=== PATIENT | female | born 1975 | race Caucasian/White ===

== ENCOUNTER 2017-02-07 07:51 | Observation (INO) | payer MEDICARE, OTHER ==
[~2017-02-07] VITALS: Ht 170.2 cm; Wt 57.0 kg
[2017-02-07 07:53] VITALS: BP 91/52; PULSE 75; RESP 16; TEMP 98; O2SAT 97
--- NOTE | 2017-02-07 08:06 | PD ---
HPI Chief Complaint: Slurred speech Time Seen by Provider: 08:00 Travel History International Travel<30 days: No Contact w/Intl Traveler<30days: No Traveled to known affect area: No History of Present Illness HPI 41yo F with PMH of bipolar disorder presents to the ED with c/o slurred speech that started when she woke up this morning. As per , pt went to bed with normal speech but work up with slurred speech. Pt complains of generalized weakness. Denies any trauma, fever, chest pain, sob, n/v, abdominal pain, focal weakness or numbness. Denies any cocaine use. Denies any history of TIA or CVA. Pt is on risperidone but has been on it for 8 years with no side effects. Blood glucose 132. PFSH Past Medical History ?: Not Social History Alcohol Use: No Tobacco Use: No Substance Use: No Allergies-Medications (Allergen,Severity, Reaction): Coded Allergies: No Known Allergies (Unverified , 02/07/17) Reported Meds & Prescriptions Reported Meds & Active Scripts Active Reported Risperdal (Risperidone) 4 Mg Tab 4 Mg PO DAILY Review of Systems Except as stated in HPI: all other systems reviewed are Neg Physical Exam Narrative GENERAL: 41yo F not in distress. SKIN: Focused skin assessment warm/dry. HEAD: Atraumatic. Normocephalic. EYES: Pupils equal and round at 4mm bilaterally. EOMI. No scleral icterus. No injection or drainage. ENT: No nasal bleeding or discharge. Mucous membranes pink and moist. NECK: Trachea midline. No JVD. CARDIOVASCULAR: Regular rate and rhythm. No murmur appreciated. RESPIRATORY: No accessory muscle use. Clear to auscultation. Breath sounds equal bilaterally. GASTROINTESTINAL: Abdomen soft, non-tender, nondistended. MUSCULOSKELETAL: No obvious deformities. No clubbing. No cyanosis. No edema. NEUROLOGICAL: Awake and alert. No obvious cranial nerve deficits. Motor grossly within normal limits. Mild dysarthria. NIH scale 1. Data Data Last Documented VS Vital Signs Date Time Temp Pulse Resp B/P Pulse Ox O2 Delivery O2 Flow Rate FiO2 02/07/17 09:16 64 18 88/54 98 02/07/17 07:53 98.0 Orders Basic Metabolic Panel (Bmp) (02/07/17 08:00) Complete Blood Count With Diff (02/07/17 08:00) Prothrombin Time / Inr (Pt) (02/07/17 08:00) Act Partial Throm Time (Ptt) (02/07/17 08:00) Thyroid Stimulating Hormone (02/07/17 08:00) Ct Brain W/O Iv Contrast(Rout) (02/07/17 08:00) Blood Glucose (02/07/17 08:00) Ecg Monitoring (02/07/17 08:00) Iv Access Insert/Monitor (02/07/17 08:00) Urinalysis - C+S If Indicated (02/07/17 08:00) Labs Laboratory Tests Test 02/07/17 02/07/17 08:05 08:55 White Blood Count 3.7 TH/MM3 Red Blood Count 4.28 MIL/MM3 Hemoglobin 14.0 GM/DL Hematocrit 41.5 % Mean Corpuscular Volume 96.9 FL Mean Corpuscular Hemoglobin 32.6 PG Mean Corpuscular Hemoglobin 33.7 % Concent Red Cell Distribution Width 13.0 % Platelet Count 198 TH/MM3 Mean Platelet Volume 8.1 FL Neutrophils (%) (Auto) 60.3 % Lymphocytes (%) (Auto) 28.2 % Monocytes (%) (Auto) 10.3 % Eosinophils (%) (Auto) 0.5 % Basophils (%) (Auto) 0.7 % Neutrophils # (Auto) 2.2 TH/MM3 Lymphocytes # (Auto) 1.0 TH/MM3 Monocytes # (Auto) 0.4 TH/MM3 Eosinophils # (Auto) 0.0 TH/MM3 Basophils # (Auto) 0.0 TH/MM3 CBC Comment DIFF FINAL Differential Comment Prothrombin Time 12.2 SEC Prothromb Time International 1.1 RATIO Ratio Activated Partial 23.8 SEC Thromboplast Time Sodium Level 140 MEQ/L Potassium Level 4.3 MEQ/L Chloride Level 108 MEQ/L Carbon Dioxide Level 22.3 MEQ/L Anion Gap 10 MEQ/L Blood Urea Nitrogen 17 MG/DL Creatinine 0.67 MG/DL Estimat Glomerular Filtration 96 ML/MIN Rate Random Glucose 133 MG/DL Calcium Level 8.8 MG/DL Thyroid Stimulating Hormone 2.200 uIU/ML 3rd Gen Urine Color LIGHT-YELLOW Urine Turbidity CLEAR Urine pH 7.0 Urine Specific [place] 1.005 Urine Protein NEG mg/dL Urine Glucose (UA) NEG mg/dL Urine Ketones NEG mg/dL Urine Occult Blood NEG Urine Nitrite NEG Urine Bilirubin NEG Urine Urobilinogen LESS THAN 2.0 MG/DL Urine Leukocyte Esterase NEG Urine WBC LESS THAN 1 /hpf Urine Squamous Epithelial <1 /hpf Cells Microscopic Urinalysis Comment CULT NOT INDICATED MDM Medical Decision Making Medical Screen Exam Complete: Yes Emergency Medical Condition: Yes Interpretation(s) EKG: NSR 80bpm. Normal axis. No ST segment elevation or depression. Differential Diagnosis CVA vs. conversion disorder vs. medication effects Narrative Course 41yo F with c/o slurred speech that started when she woke up. No other neurologic complaints. Labs reviewed, glucose 133. TSH normal. UA negative. CT brain negative. Pt reevaluated at bedside and her speech is now normal. Impression is TIA. Pt given aspirin and will admit for TIA work up. Diagnosis Primary Impression: TIA (transient ischemic attack) Qualified Code: G45.9 - Transient cerebral ischemia, unspecified type Admitting Information Admitting Physician Requests: Fernanda Vera DO February 07, 2017 08:06
--- NOTE | 2017-02-07 08:23 | RADRPT ---
EXAM DATE/TIME: 02/07/2017 08:08 [facility] COMPARISON: No previous studies available for comparison. INDICATIONS : Slurred speach. RADIATION DOSE: 34.89 CTDIvol (mGy) MEDICAL HISTORY : None SURGICAL HISTORY : None. ENCOUNTER: Initial ACUITY: 1 day PAIN SCALE: 0/10 LOCATION: cranial TECHNIQUE: Multiple contiguous axial images were obtained of the head. Using automated exposure control and adj ustment of the mA and/or kV according to patient size, radiation dose was kept as low as reasonably a chievable to obtain optimal diagnostic quality images. FINDINGS: CEREBRUM: The ventricles are normal for age. No evidence of midline shift, mass lesion, hemorrhage or acute in farction. No extra-axial fluid collections are seen. POSTERIOR FOSSA: The cerebellum and brainstem are intact. The 4th ventricle is midline. The cerebellopontine angle i s unremarkable. EXTRACRANIAL: The visualized portion of the orbits is intact. SKULL: The calvaria is intact. No evidence of skull fracture. CONCLUSION: Brain CT within normal limits. Waqar Reyes MD on February 07, 2017 at 8:19 Board Certified Radiologist. This report was verified electronically.
[2017-02-07] MEDS ORDERED: RISP4TAB41 PO (08:27)
[2017-02-07 08:42] LABS: AUTOMATED NEUTROPHIL # 2.2 TH/MM3 (1.8-7.7); BASOPHIL % 0.7 % (0.0-2.0); EOSINOPHIL % 0.5 % (0.0-4.0); HEMATOCRIT 41.5 % (35.0-46.0); HEMO FLAGS DIFF FINAL; LYMPH % 28.2 % (9.0-44.0); MEAN CELL VOLUME 96.9 FL (80.0-100.0); MEAN CORPUSCULAR HEMOGLOBIN 32.6 PG (27.0-34.0); MEAN CORPUSCULAR HGB CONC 33.7 % (32.0-36.0); MONO % 10.3 % (0.0-8.0); NEUT % 60.3 % (16.0-70.0); PLATELET COUNT 198 TH/MM3 (150-450); RED BLOOD COUNT 4.28 MIL/MM3 (4.00-5.30); WHITE BLOOD COUNT 3.7 TH/MM3 (4.0-11.0)
[2017-02-07 08:51] LABS: APTT (PATIENT) 23.8 SEC (24.3-30.1); INTERNATIONAL NORMALIZED RATIO 1.1 RATIO; PROTHROMBIN TIME - PATIENT 12.2 SEC (9.8-11.6)
[2017-02-07 08:54] LABS: BICARBONATE 22.3 MEQ/L (21.0-32.0); POTASSIUM 4.3 MEQ/L (3.5-5.1)
[2017-02-07 09:16] VITALS: BP 88/54; PULSE 64; RESP 18; O2SAT 98
[2017-02-07 09:21] LABS: BLOOD, URINE NEG (NEG); GLUCOSE,URINE NEG (NEG); KETONE, URINE NEG (NEG); NITRITE,URINE NEG (NEG); SQUAMOUS EPITHELIAL CELL URINE <1 /hpf (0-5); URINE COLOR LIGHT-YELLOW (YELLW/STRAW)
[2017-02-07 09:33] LABS: COMMENT (UR) CULT NOT INDICATED; CULTURE IF INDICATED CULT NOT INDICATED
[2017-02-07] MEDS ORDERED: ASPIRIN 325 MG TAB PO ONE (09:45)
--- NOTE | 2017-02-07 09:49 | HHI.HP ---
HPI Service Family Medicine Primary Care Physician [facility] Admission Diagnosis TIA Diagnoses: International Travel<30 Days: No Contact w/Intl Traveler<30days: No Known Affected Area: No History of Present Illness This is a 41-year-old female without significant cardiovascular past medical history presents because of slurred speech and difficulty walking since 45 minutes after waking up this morning. Patient states she woke up around 6:30 AM and roughly half hour later noticed something wrong with her speech. She states her speech was slurred and this was affirmed by her . She also had difficulty walking and ask her to carry her to the car. She denies word finding difficulties. No changes in vision. Denies weakness numbness, tingling, sensation abnormalities. This has never happened before. When they arrived at the hospital, he had to be carried from the car to the emergency room. Roughly an hour after her symptoms started, she was able to walk without difficulty as normal. Roughly 90 minutes after the difficulty speaking/slurred speech, her speech became normalized. During my visit at 9:50 AM, she is "back to normal." (Jose Marie MD R2) Review of Systems Constitutional: DENIES: Fever, Chills Eyes: DENIES: Blurred vision, Diplopia Ears, nose, mouth, throat: DENIES: Tinnitus, Hearing loss Respiratory: DENIES: Apneas, Cough Cardiovascular: DENIES: Chest pain, Palpitations, Syncope Gastrointestinal: DENIES: Abdominal pain, Black stools, Bloody stools, Constipation, Diarrhea, Nausea, Vomiting, Difficulty Swallowing Genitourinary: DENIES: Abnormal vaginal bleeding, Dysmenorrhea Musculoskeletal: DENIES: Joint pain, Muscle aches Integumentary: DENIES: Abnormal pigmentation, Pruritus Hematologic/lymphatic: DENIES: Bruising Neurologic: COMPLAINS OF: Abnormal gait, Speech Problems, Poor Balance, DENIES : Headache, Localized weakness, Paresthesias, Seizures, Tremor Psychiatric: COMPLAINS OF: Confusion (see hpi), DENIES: Anxiety (Jose Marie MD R2) Past Family Social History Past Medical History Bipolar disorder- sees [place] doctor Past Surgical History Volvulus- 2015 Reported Medications Reported Meds & Active Scripts Active Reported Risperdal (Risperidone) 4 Mg Tab 4 Mg PO DAILY (Jose Marie MD R2) Allergies: Coded Allergies: No Known Allergies (Unverified , 02/07/17) Family History Mom- alive and well. no hx of strokes or heart disease Dad- alive and well. No hx of strokes or heart disease Social History From [place]. Lives here now. Moved in 2012. Live with and no one else. No children. Smoke 1 cigar a month currently. Previous 1.5 PPD from [id number]. Alcohol- none No MJ, cocaine or other illicits. (Jose Marie MD R2) Physical Exam Vital Signs Vital Signs Date Time Temp Pulse Resp B/P Pulse Ox O2 Delivery O2 Flow Rate FiO2 02/07/17 09:16 64 18 88/54 98 02/07/17 07:56 16 02/07/17 07:53 98.0 75 16 91/52 97 Physical Exam GENERAL: This is a well-nourished, well-developed patient, in no apparent distress. SKIN: No rashes, ecchymoses or lesions. Cool and dry. HEAD: Atraumatic. Normocephalic. No temporal or scalp tenderness. EYES: Pupils equal round and reactive. Extraocular motions intact. No scleral icterus. No injection or drainage. ENT: Nose without bleeding, purulent drainage or septal hematoma. Throat without erythema, tonsillar hypertrophy or exudate. Uvula midline. Airway patent. NECK: Trachea midline. No JVD or lymphadenopathy. Supple, nontender, no meningeal signs. CARDIOVASCULAR: Regular rate and rhythm without murmurs, gallops, or rubs. RESPIRATORY: Clear to auscultation. Breath sounds equal bilaterally. No wheezes , rales, or rhonchi. GASTROINTESTINAL: Abdomen soft, non-tender, nondistended. No hepato-splenomegaly , or palpable masses. No guarding. MUSCULOSKELETAL: Extremities without clubbing, cyanosis, or edema. No joint tenderness, effusion, or edema noted. No calf tenderness. Negative Homans sign bilaterally. NEUROLOGICAL: Awake and alert. Cranial nerves II through XII intact. Motor and sensory grossly within normal limits. Five out of 5 muscle strength in all muscle groups. Normal speech. Laboratory Laboratory Tests Test 02/07/17 02/07/17 08:05 08:55 White Blood Count 3.7 Red Blood Count 4.28 Hemoglobin 14.0 Hematocrit 41.5 Mean Corpuscular Volume 96.9 Mean Corpuscular Hemoglobin 32.6 Mean Corpuscular Hemoglobin 33.7 Concent Red Cell Distribution Width 13.0 Platelet Count 198 Mean Platelet Volume 8.1 Neutrophils (%) (Auto) 60.3 Lymphocytes (%) (Auto) 28.2 Monocytes (%) (Auto) 10.3 Eosinophils (%) (Auto) 0.5 Basophils (%) (Auto) 0.7 Neutrophils # (Auto) 2.2 Lymphocytes # (Auto) 1.0 Monocytes # (Auto) 0.4 Eosinophils # (Auto) 0.0 Basophils # (Auto) 0.0 CBC Comment DIFF FINAL Differential Comment Prothrombin Time 12.2 Prothromb Time International 1.1 Ratio Activated Partial 23.8 Thromboplast Time Sodium Level 140 Potassium Level 4.3 Chloride Level 108 Carbon Dioxide Level 22.3 Anion Gap 10 Blood Urea Nitrogen 17 Creatinine 0.67 Estimat Glomerular Filtration 96 Rate Random Glucose 133 Calcium Level 8.8 Thyroid Stimulating Hormone 2.200 3rd Gen Urine Color LIGHT-YELLOW Urine Turbidity CLEAR Urine pH 7.0 Urine Specific [place] 1.005 Urine Protein NEG Urine Glucose (UA) NEG Urine Ketones NEG Urine Occult Blood NEG Urine Nitrite NEG Urine Bilirubin NEG Urine Urobilinogen LESS THAN 2.0 Urine Leukocyte Esterase NEG Urine WBC LESS THAN 1 Urine Squamous Epithelial <1 Cells Microscopic Urinalysis Comment CULT NOT INDICATED (Jose Marie MD R2) Result Diagram: 02/07/17 0802/07/17 08 Imaging Last Impressions Head CT 02/07/17 08 Signed Impressions: Service Date/Time: Tuesday, February 07, 2017 08:08 - CONCLUSION: Brain CT within normal limits. Waqar Reyes MD (Jose Marie MD R2) Assessment and Plan Assessment and Plan 41-year-old female concerned for stroke first TIA. Plan as below. Code Status Full (Jose Marie MD R2) Attending Attestation Patient seen and examined, discussed with resident team. I agree with assessment and management as documented and discussed with me. Pt reports she is completely back to baseline. She denies headache, vision changes, nausea, weakness. She has ambulated the halls without difficulty. She undersatnds that we are concerned re: possible TIA. She understands that she will need to take ASA at discharge. Await MRI, MRA, carotid US, echo results. Will hold off on neurology consult at this time and consult if indicated based on imaging. (Nhi Davila MD) Problem List: (1) TIA (transient ischemic attack) Status: Acute Plan: Stroke versus TIA. CT head negative. Currently patient back to her baseline. Neurology consult; stroke navigator consult Aspirin 325 daily PT/ST/OT consult Neurochecks every 2 hours Nothing by mouth until Bedside swallow by nursing. If normal, regular diet. Images ordered and pending: Ultrasound carotid, MRA brain, MRI brain, 2-D echo Labs ordered: TSH, lipid panel, hemoglobin A1c (2) FEN/PPX Status: Acute Plan: Fluids: None indicated at this time. Electrolytes: Monitor and replace when necessary Nutrition: Nothing by mouth until bedside swallow performed. Then regular diet Prophylaxis: Bilateral SCDs. Lovenox 40 subcutaneous Chronic medical problems: Bipolar disorder-continue Risperdal (Jose Marie MD R2) Physician Certification 2 Midnight Certification Type: Admission for Inpatient Services Order for Inpatient Services The services are ordered in accordance with Medicare regulations or non- Medicare payer requirements, as applicable. In the case of services not specified as inpatient-only, they are appropriately provided as inpatient services in accordance with the 2-midnight benchmark. Estimated LOS (days): 1 days is the estimated time the patient will need to remain in the hospital, assuming treatment plan goals are met and no additional complications. Post-Hospital Plan: Home (Jose Marie MD R2) Problem Qualifiers (1) TIA (transient ischemic attack): Qualified Code: G45.9 - Transient cerebral ischemia, unspecified type Jose Marie MD R2 February 07, 2017 09:49 Nhi Davila MD February 07, 2017 20:04
[2017-02-07] MEDS ORDERED: ENOXAPARIN SODIUM 40 MG/0.4 ML SYRINGE SQ SCH (10:15)
[2017-02-07] MEDS ORDERED: SODIUM CHLORIDE 0.9% FLUSH 5 ML FLUSH IV FLUSH PRN (10:15)
[2017-02-07] MEDS ORDERED: ACETAMINOPHEN 325 MG TAB PO PRN (11:00)
[2017-02-07] MEDS ORDERED: MAGNESIUM HYDROXIDE SUSP 30 ML CUP PO PRN (11:00)
[2017-02-07] MEDS ORDERED: TEMAZEPAM 15 MG CAP PO PRN (11:00)
[2017-02-07 11:15] VITALS: BP 92/54; PULSE 58; RESP 16; O2SAT 98
[2017-02-07 12:14] VITALS: BP 95/61; PULSE 60; RESP 16; O2SAT 97
--- NOTE | 2017-02-07 13:34 | RADRPT ---
EXAM DATE/TIME: 02/07/2017 11:46 [facility] COMPARISON: No previous studies available for comparison. INDICATIONS : Aphasia. Resolved. MEDICAL HISTORY : None. SURGICAL HISTORY : None. ENCOUNTER: Initial ACUITY: 1 day PAIN SCORE: 0/10 LOCATION: cranial TECHNIQUE: Multiplanar, multisequence MRI of the brain was performed without contrast. FINDINGS: CEREBRUM: The ventricles are normal for age. No evidence of midline shift, mass lesion, hemorrhage or acute in farction. No extraaxial fluid collections are seen. The pituitary gland and suprasellar cistern are normal in configuration. WHITE MATTER: No significant signal abnormalities are seen in the white matter. POSTERIOR FOSSA: The cerebellum and brainstem are intact. The 4th ventricle is midline. The cerebellopontine angle is unremarkable. The cerebellar tonsils are normal in position. DIFFUSION IMAGING: No focal areas of restricted diffusion are seen. No evidence of acute infarction. EXTRACRANIAL: The visualized portions of the orbits and paranasal sinuses are unremarkable. CONCLUSION: No acute intracranial findings. Waqar Reyes MD on February 07, 2017 at 13:30 Board Certified Radiologist. This report was verified electronically.
--- NOTE | 2017-02-07 13:35 | RADRPT ---
EXAM DATE/TIME: 02/07/2017 11:46 [facility] COMPARISON: No previous studies available for comparison. INDICATIONS : Aphasia. Resolved. MEDICAL HISTORY : None. SURGICAL HISTORY : None. ENCOUNTER: Initial ACUITY: 1 day PAIN SCORE: 0/10 LOCATION: cranial Please note a normal MRA of the brain does not entirely exclude the possibility of a small aneurysm, nor the possibility of distal intracranial vessel disease. TECHNIQUE: 3D time of flight MRA was performed. Source images, multiplanar STS MIP, and 3D volume MIP reconstru ctions were reviewed. FINDINGS: There is excellent visualization of the major intracranial arteries out to the second-order branch ve ssels. There is no evidence for aneurysm, vessel truncation or stenosis, and no evidence for vascula r malformation. CONCLUSION: Brain MRA within normal limits. Waqar Reyes MD on February 07, 2017 at 13:32 Board Certified Radiologist. This report was verified electronically.
[2017-02-07 13:56] LABS: HEMOGLOBIN A1a 1.3 %; HEMOGLOBIN A1b 0.7 %; HEMOGLOBIN Ao 85.3 %; HEMOGLOBIN F 1.3 %; HEMOGLOBIN LA1C 2.2 %; HEMOGLOBIN P3 5.2 %
[2017-02-07 15:31] VITALS: BP 105/63; PULSE 89; RESP 18; TEMP 98.9; O2SAT 95
--- NOTE | 2017-02-07 16:07 | RADRPT ---
EXAM DATE/TIME: 02/07/2017 14:26 [facility] COMPARISON: No previous studies available for comparison. INDICATIONS : Syncope. MEDICAL HISTORY : Syncope. Confusion. SURGICAL HISTORY : None. ENCOUNTER: Initial ACUITY: 1 day PAIN SCORE: 2/10 LOCATION: Bilateral neck PEAK SYSTOLIC VELOCITIES (cm/sec): ICA/CCA RATIO: Right: 0.8 Left: 1.1 ICA: Right: 65 Left: 103 CCA: Right: 77 Left: 90 ECA: Right: 57 Left: 69 VERTEBRAL: Right: 47 antegrade Left: 58 antegrade Elevated flow velocities and ICA/CCA ratios have been found to correlate with increased degrees of vessel stenosis, calculated as percentage of diameter relative to a normal segment of distal ICA/CCA FINDINGS: RIGHT CAROTID: No significant stenosis is visualized. The waveforms are within normal limits. LEFT CAROTID: No significant stenosis is visualized. The waveforms are within normal limits. VERTEBRAL ARTERIES: Antegrade flow is seen in both vertebral arteries. MISCELLANEOUS: None. CONCLUSION: Normal examination. Arden Rea MD on February 07, 2017 at 16:05 Board Certified Radiologist. This report was verified electronically.
--- NOTE | 2017-02-07 16:35 | EKG ---
Date Performed: 02/07/2017 Time Performed: 07:53:02 PTAGE: 41 years EKG: Sinus rhythm NORMAL ECG NO PREVIOUS TRACING DOCTOR: Michelle Rivas Interpretating Date/Time 02/07/2017 16:34:15
[2017-02-07 17:19] VITALS: PULSE 57
[2017-02-07] MEDS ORDERED: ASPI325T PO (17:26)
--- NOTE | 2017-02-07 17:27 | HHI.DCPOC ---
Discharge Care Plan Diagnosis: (1) TIA (transient ischemic attack) Goals to Promote Your Health * To prevent worsening of your condition and complications * To maintain your health at the optimal level Directions to Meet Your Goals Take your medications as prescribed Follow your dietary instruction Follow activity as directed Keep your appointments as scheduled Take your immunizations and boosters as scheduled If your symptoms worsen call your PCP, if no PCP go to Urgent Care Center or Emergency Room Smoking is Dangerous to Your Health. Avoid second hand smoke Call the 24-hour hour crisis hotline for domestic abuse at Jose Marie MD R2 February 07, 2017 17:27
[2017-02-07] MEDS ORDERED: SODIUM CHLORIDE 0.9% FLUSH 5 ML FLUSH IV FLUSH SCH (21:00)
--- NOTE | 2017-02-08 07:39 | EC ---
Study Study Date:02/07/2017 STUDY CONCLUSIONS SUMMARY - Left ventricle: The cavity size was normal. Wall thickness was normal. Systolic function was normal. The estimated ejection fraction was in the range of 55% to 60%. Wall motion was normal; there were no regional wall motion abnormalities. - Aortic valve: Valve area: 1.79cm^2 (Vmax). - Mitral valve: Valve area by pressure half-time: 2.27cm^2. If LV function is below 40, please consider prescribing an ACEI or ARB or document rationale for non-use. PROCEDURE DATA STUDY STATUS: Elective. Procedure: Transthoracic echocardiography. Image quality was good. Scanning was performed from the parasternal, apical, and subcostal acoustic windows. Study completion: The patient tolerated the procedure well. Transthoracic echocardiography. M-mode, complete 2D, complete spectral Doppler, and color Doppler. Height: Height: 67in. Weight: Weight: 124.7lb. Body mass index: BMI: 19.6kg/m^2. Body surface area: BSA: 1.66m^2. Patient status: Inpatient. CARDIAC ANATOMY LEFT VENTRICLE: The cavity size was normal. Wall thickness was normal. Systolic function was normal. The estimated ejection fraction was in the range of 55% to 60%. Wall motion was normal; there were no regional wall motion abnormalities. AORTIC VALVE: Trileaflet; normal thickness leaflets. Doppler: Transvalvular velocity was within the normal range. There was no stenosis. No regurgitation. Valve area: 1.79cm^2 (Vmax). Indexed valve area: 1.08cm^2/m^2 (Vmax). AORTA: Aortic root: The aortic root was normal in size. MITRAL VALVE: Structurally normal valve. Doppler: Transvalvular velocity was within the normal range. There was no evidence for stenosis. Trace to mild regurgitation. Valve area by pressure half-time: 2.27cm^2. Indexed valve area by pressure half-time: 1.37cm^2/m^2. LEFT ATRIUM: The atrium was normal in size. RIGHT VENTRICLE: The cavity size was normal. Wall thickness was normal. PULMONIC VALVE: Doppler: Transvalvular velocity was within the normal range. There was no evidence for stenosis. No regurgitation. TRICUSPID VALVE: Structurally normal valve. Doppler: Transvalvular velocity was within the normal range. No regurgitation. Peak gradient: 14mm Hg (D). PULMONARY ARTERY: The main pulmonary artery was normal-sized. Systolic pressure was within the normal range. RIGHT ATRIUM: The atrium was normal in size. PERICARDIUM: There was no pericardial effusion. SYSTEMIC VEINS: Inferior vena cava: The vessel was normal in size. Patient weight: 124.7lb _Ejection fraction:_ 65-75% _Fractional shortening:_ 32% up to 5Kg 5-11.5Kg 11.6-22.9Kg 23-45Kg 45-57Kg Aortic Root 7-13 <17 13-22 17-27 17-27 LA diam 6-13 <23 24-38 33-47 37-40 RVID 10-17 7-15 7-15 7-18 8-17 LVIDd 12-22 <32 24-38 33-47 37-40 LVPW 2-4 3-6 5-7 6-8 7-8 IVS 2-4 3-6 5-7 6-8 7-8 BASIC MEASUREMENTS ADULT NORMAL Left ventricle LV internal dimension, ED, chordal 44.9 mm 43-52 level, PLAX LV internal dimension, ES, chordal 31.8 mm 23-38 level, PLAX Fractional shortening, chordal level, *29 % >29 PLAX LV posterior wall thickness, ED 6.03 mm IVS/LVPW ratio, ED 1 <1.3 Volume, ED, MOD, 1-plane 97 ml Volume, ES, MOD, 1-plane 42 ml Ejection fraction, MOD, 1-plane 57 % Stroke volume, MOD, 1-plane 55 ml Volume index, ED, MOD, 1-plane 58 ml/m^2 Volume index, ES, MOD, 1-plane 25 ml/m^2 Stroke index, MOD, 1-plane 33.1 ml/m^2 Ventricular septum Septal thickness, ED 6.06 mm Aortic valve Leaflet separation 20 mm 15-26 Left atrium Anterior-posterior dimension 35 mm Anterior-posterior dimension index 2.11 cm/m^2 <2.2 Right ventricle RV internal dimension, ED, PLAX 23.2 mm 19-38 BASIC MEASUREMENTS ADULT NORMAL Aortic valve Leaflet separation 20 mm 15-26 Aorta Root diameter, ED 27 mm 20-37 DOPPLER MEASUREMENTS ADULT NORMAL Aortic valve Peak velocity, S 137 cm/s Valve area, Vmax 1.79 cm^2 Valve area index, Vmax 1.08 cm^2/m^2 Mitral valve Peak E-wave velocity 58.2 cm/s Peak A-wave velocity 49.9 cm/s Pressure half-time 97 ms Peak E/A ratio 1.2 Valve area, pressure half-time 2.27 cm^2 Valve area index, pressure half-time 1.37 cm^2/m^2 Tricuspid valve Peak gradient, D 14 mm Hg Maximal inflow velocity 185 cm/s Systemic veins Estimated CVP 10 mm Hg Pulmonic valve Peak velocity, S 105 cm/s LEGEND: Mean values are shown as u=mean value. Asterisk (*) iglesias values outside specified normal range. Prepared and signed by Michelle Rivas [id number]
--- NOTE | 2017-02-08 07:42 | MB ---
cc: RADHA ELIZONDO MD DATE OF CONSULTATION: 02/07/2017 REASON FOR CONSULTATION: Possible TIA. HISTORY OF PRESENT ILLNESS Ms. Leon is a 41-year-old female who presents to the [facility] because of sudden onset of slurred speech and generalized weakness, and feeling fatigue, after she woke up in the morning. She denies headache, double vision, blurred vision, or weakness of the upper extremity, no loss of consciousness or convulsions. She denies any prior history of a similar episode. She states that almost an hour after the symptoms happened, she then was able to walk without difficulty, without slurring of speech. REVIEW OF SYSTEMS A 12-point review of systems is negative except for what is stated in the HPI. PAST MEDICAL HISTORY Bipolar disorder, schizophrenia. PAST SURGICAL HISTORY Volvulus. MEDICATIONS Risperdal. ALLERGIES No known allergies. FAMILY HISTORY Noncontributory. SOCIAL HISTORY: Lives with . Smokes one cigarette a month, previously [id number]-half pack per day. Denies alcohol, denies illicit drug abuse. PHYSICAL EXAMINATION: General: Awake, alert, oriented, good historian not in acute distress. HEENT: Atraumatic, normocephalic. Intact hearing. Intact vision. Cardiovascular: Regular rate and rhythm. Respiratory: Clear to auscultation. No wheezes. Gastrointestinal: Soft abdomen. No tenderness. Musculoskeletal: Extremities without clubbing, cyanosis or edema, moves all extremities. Neurological: Awake, alert, oriented to time, person and place. No dysarthria. No dysphasia. Cranial nerve examination II-XII are grossly intact. Motor system examination 5/5 bilateral upper and lower extremities. No abnormal movement, normal tone. Sensation is intact bilaterally throughout. Reflexes 2+ bilateral and symmetrical. Plantars are bilaterally downgoing. [id number], [id number]-[id number] bilateral intact. No ataxia. Intact gait. Negative Romberg sign. Psychological: Intact mood and behavior. No hallucinations LABORATORY DATA White blood cells 3.7, hemoglobin 14, MCV 96.9, INR 1.1, sodium 140, potassium 4.3, anion gap 10, BUN 70, creatinine 0.67, calcium 133. Urine tox negative. IMAGING STUDIES -Head CT scan with no acute abnormality. -Brain MRI with no acute intracranial findings. -Carotid ultrasound, normal examination. -Head MRA within normal limits. DIAGNOSTIC IMPRESSION TIA Bipolar disorder Schizophrenia. PLAN 1. Aspirin 81 mg daily. 2. Follow-up with neurology outpatient. The patient is stable from neurology standpoint with nonfocal neurologic exam and unremarkable neurologic investigation. Please consult for questions. Thank you for the opportunity to participate in the care of your patient. MD GIORGIO Rocha/THOMPSON /12:37 AM /6:38 AM VERONICA
[2017-02-08] MEDS ORDERED: ASPIRIN 325 MG TAB PO SCH (09:00)
[2017-02-08] MEDS ORDERED: risperiDONE 1 MG TAB PO SCH (09:00)
[2017-02-08] MEDS ORDERED: risperiDONE 3 MG TAB PO SCH (09:00)
== END 2017-02-07 18:12 | disposition home or self-care (01) ==
LOC: NEPE 07:51 → NEDA 09:48 → NEPHCDU 13:58
PROVIDERS: ADMIT Family Medicine; ATTEND Family Medicine
DX: G45.9 Transient cerebral ischemic attack, unspecified (principal); F31.9 Bipolar disorder, unspecified
CPT/HCPCS: 70450; 70544; 70551; 80048; 81001; 82948; 83036; 84443; 85025; 85610; 85730; 93005; 93306; 93880; 97161; 99285; G0378; J1650